=== PATIENT | female | born 1980 | race Caucasian/White ===

== ENCOUNTER → 2018-08-19 | Outpatient (CLI) | payer BC ==
--- NOTE | 2018-08-19 16:53 | XR ---
EXAMINATION TYPE: XR chest 2V DATE OF EXAM: 08/19/2018 COMPARISON: None HISTORY: 38-year-old female with chest pain TECHNIQUE: PA and lateral views FINDINGS: Heart normal size. Mild periportal cuffing. Strandy atelectasis in the lower lungs. No consolidation or pleural effusion. IMPRESSION: Mild peribronchial cuffing could reflect bronchitis or asthma. Otherwise, no acute cardiopulmonary pr ocess.
== END | disposition home or self-care (01) ==
LOC: RADXRMAIN 14:28
PROVIDERS: ATTEND Family Medicine
DX: J98.09 Other diseases of bronchus, not elsewhere classified (principal); R07.9 Chest pain, unspecified
CPT/HCPCS: 71046

== ENCOUNTER → 2018-08-19 | Outpatient (CLI) | payer BC ==
[2018-08-19 15:16] LABS: Basophils % (A) 0 %; Eosinophils # (A) 0.1 k/uL (0-0.7); Eosinophils % (A) 1 %; HCT 44.1 % (34.0-46.0); HGB 14.2 gm/dL (11.4-16.0); Lymphocytes # (A) 1.6 k/uL (1.0-4.8); Lymphocytes % (A) 11 %; MCH 27.9 pg (25.0-35.0); MCHC 32.1 g/dL (31.0-37.0); Mean Platelet Volume 7.7; Monocytes # (A) 0.5 k/uL (0-1.0); Monocytes % (A) 3 %; Neutrophils # (A) 11.4 k/uL (1.3-7.7); Neutrophils % (A) 83 %; Platelet Count 400 k/uL (150-450); RBC 5.07 m/uL (3.80-5.40); RDW 14.2 % (11.5-15.5); WBC 13.7 k/uL (3.8-10.6)
[2018-08-19 19:23] LABS: Albumin 4.5 g/dL (3.80-4.90); Albumin/Globulin Ratio 2.05 (1.60-3.17); Anion Gap 9.1 mmol/L (4.00-12.00); Calcium 9.4 mg/dL (8.7-10.3); Carbon Dioxide 26.9 mmol/L (21.6-31.8); Globulin 2.2 g/dL (1.6-3.3); Potassium 4.5 mmol/L (3.5-5.5); Total Bilirubin 0.2 mg/dL (0.2-1.2); Total Protein 6.7 g/dL (6.2-8.2)
== END | disposition home or self-care (01) ==
LOC: LABWHC1 14:43
PROVIDERS: ATTEND Family Medicine
DX: E55.9 Vitamin D deficiency, unspecified (principal); E07.9 Disorder of thyroid, unspecified
CPT/HCPCS: 36415; 80053; 82306; 84443; 85025

== ENCOUNTER → 2018-08-21 | Outpatient (CLI) | payer BC ==
--- NOTE | 2018-08-23 11:56 | MM ---
Reason for exam: screening (asymptomatic). Last mammogram was performed 2 years and 9 months ago. History: Patient had first child at age 33. Family history of breast cancer in maternal grandmother at age 70, breast cancer in maternal aunt at age 60, and breast cancer in maternal cousin at age 30. Physical Findings: A clinical breast exam by your physician is recommended on an annual basis and results should be correlated with mammographic findings. MG 3D Screening Mammo W/Cad Bilateral CC and MLO view(s) were taken. Prior study comparison: November 30, 2015, bilateral MG screening mammo w CAD. March 12, 2014, bilateral MG screening mammo w CAD. There are scattered fibroglandular densities. Finding: There is developing equal indistinct architectural distortion in the upper outer quadrant of the right breast. New finding since November 30, 2015 and March 12, 2014. ASSESSMENT: Incomplete: need additional imaging evaluation, BI-RAD 0 RECOMMENDATION: Special view mammogram of the right breast. If lesion persists on supplemental views, image directed ultrasound is recommended. [facility] will attempt to contact patient to return for supplemental views and ultrasound if indicated.
== END | disposition home or self-care (01) ==
LOC: RADMAMWWP 15:42
PROVIDERS: ATTEND Obstetrics & Gynecology
DX: Z12.31 Encounter for screening mammogram for malignant neoplasm of breast (principal); Z80.3 Family history of malignant neoplasm of breast; R92.2 Inconclusive mammogram
CPT/HCPCS: 77063; 77067

== ENCOUNTER → 2018-08-28 | Outpatient (CLI) | payer BC ==
--- NOTE | 2018-08-29 07:27 | MM ---
Reason for exam: additional evaluation requested from abnormal screening. Last mammogram was performed less than 1 month ago. History: Patient had first child at age 33. Family history of breast cancer in maternal grandmother at age 70, breast cancer in maternal aunt at age 60, and breast cancer in maternal cousin at age 30. Taking progesterone for 1 year. Physical Findings: Nurse did not find any significant physical abnormalities on exam. MG 3D Work Up W/Cad RT Spot compression CC, spot compression MLO, and LM view(s) were taken of the right breast. Prior study comparison: August 21, 2018, bilateral MG 3d screening mammo w/cad. November 30, 2015, bilateral MG screening mammo w CAD. There are scattered fibroglandular densities. The upper inner quadrant focal asymmetry disperses on additional views. These results were verbally communicated with the patient and result sheet given to the patient on 08/28/18. ASSESSMENT: Negative, BI-RAD 1 RECOMMENDATION: Return to routine screening mammogram schedule for both breasts.
== END | disposition home or self-care (01) ==
LOC: RADMAMWWP 14:53
PROVIDERS: ATTEND Obstetrics & Gynecology
DX: R92.8 Other abnormal and inconclusive findings on diagnostic imaging of breast (principal)
CPT/HCPCS: 77061; 77065

== ENCOUNTER → 2019-04-08 | Outpatient (CLI) | payer BC ==
[2019-04-08 09:47] LABS: Basophils # (A) 0.2 k/uL (0-0.2); Basophils % (A) 2 %; Eosinophils # (A) 0.1 k/uL (0-0.7); Eosinophils % (A) 1 %; HCT 45.6 % (34.0-46.0); HGB 14.4 gm/dL (11.4-16.0); Lymphocytes % (A) 20 %; MCH 28.2 pg (25.0-35.0); MCHC 31.5 g/dL (31.0-37.0); MCV 89.4 fL (80.0-100.0); Mean Platelet Volume 8.4; Monocytes # (A) 0.6 k/uL (0-1.0); Monocytes % (A) 5 %; Neutrophils # (A) 7.3 k/uL (1.3-7.7); Neutrophils % (A) 70 %; Platelet Count 345 k/uL (150-450); RBC 5.11 m/uL (3.80-5.40); RDW 13.3 % (11.5-15.5); WBC 10.3 k/uL (3.8-10.6)
== END | disposition home or self-care (01) ==
LOC: LABPAT 08:43
PROVIDERS: ATTEND Obstetrics & Gynecology
DX: Z01.812 Encounter for preprocedural laboratory examination (principal); N92.0 Excessive and frequent menstruation with regular cycle
CPT/HCPCS: 36415; 85025

== ENCOUNTER 2019-04-14 06:43 | Day surgery (SDC) | payer BC ==
[2019-04-08 09:47] LABS: Basophils # (A) 0.2 k/uL (0-0.2); Basophils % (A) 2 %; Eosinophils # (A) 0.1 k/uL (0-0.7); Eosinophils % (A) 1 %; HCT 45.6 % (34.0-46.0); HGB 14.4 gm/dL (11.4-16.0); Lymphocytes % (A) 20 %; MCH 28.2 pg (25.0-35.0); MCHC 31.5 g/dL (31.0-37.0); MCV 89.4 fL (80.0-100.0); Mean Platelet Volume 8.4; Monocytes # (A) 0.6 k/uL (0-1.0); Monocytes % (A) 5 %; Neutrophils # (A) 7.3 k/uL (1.3-7.7); Neutrophils % (A) 70 %; Platelet Count 345 k/uL (150-450); RBC 5.11 m/uL (3.80-5.40); RDW 13.3 % (11.5-15.5); WBC 10.3 k/uL (3.8-10.6)
[2019-04-09 16:00] VITALS: BMI 41.3
--- NOTE | 2019-04-10 09:36 | HP ---
HISTORY AND PHYSICAL H and P for surgery on Sunday, April 14, 2019. This is a 39-year-old white female, 1, para 1-0-0-1, who presents with a history of heavy clotty menstrual cycles. She was seen in the office where an endometrial biopsy was performed on 02/26/2019. Tissue results were consistent with weakly proliferative endometrium with progestin effect change and breakdown. In addition, she reports a chronic skin condition of the perineal body, which has never been biopsied. The patient states she has had abnormal uterine bleeding for approximately 6 months. She was treated with cyclic Prometrium 200 mg for 14 days monthly for a period of 6 months. FSH recently checked was 6.8. History is also significant for obesity. After consultation, patient is electing to proceed with NovaSure endometrial ablation, and is requesting biopsy of the perineal skin as well. Recent hemoglobin 13.9. PAST MEDICAL HISTORY: Significant for irritable bowel syndrome. PAST SURGICAL HISTORY: section in 2013, cholecystectomy 2014, colonoscopy 2017, endometrial biopsy several times in the past. CURRENT MEDICATIONS: 1. Motrin 800 mg as needed. 2. Vitamin D orally. 3. Xanax 0.5 mg as needed. ALLERGIES: Allergies include VICODIN to which she reports itching. FAMILY HISTORY: Significant for emphysema, diabetes, lung cancer, breast cancer, endometriosis, shingles, lymph node cancer. OBSTETRIC HISTORY: section 2013. 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 She admits to 1 to 4 alcoholic beverages weekly. She is a former tobacco smoker. PHYSICAL EXAMINATION: On exam, patient is 5 feet 7 inches, 265 pounds, blood pressure 122/74. HEENT examination is negative, no thyromegaly, no cervical lymphadenopathy. Good dentition. Chest is clear to auscultation in all butler anteriorly and posteriorly. Breasts are bilaterally symmetric to inspection with no skin dimpling, nipple discharge, axillary adenopathy, or discernible lesions or masses. Abdomen is obese, nontender, no organosplenomegaly, active bowel sounds. Extremities reveal no edema. There are good peripheral pulses. On pelvic exam, cervix is small, mobile, nulliparous. Uterus is small, anteverted, anteflexed, smooth, mobile, nontender. Adnexa are negative bilaterally. Rectal exam reveals good tone, FIT negative stool. The perineal skin does have a unusual appearance in that it is irregular, thin, and somewhat chaffed across the perineal body between the posterior vaginal vault and rectal area. IMPRESSION: Metrorrhagia, chronic skin disorder of the perineal body. The patient wishing endometrial ablation and biopsy of the perineal skin. PLAN: We will proceed as above. The risks, benefits, alternatives have all been discussed in detail. The ACOG pamphlet on this procedure have been given to the patient and reviewed thoroughly. She understands the risks of bleeding, infection, perforation or damage to the bowel, bladder, ureters, cervix, or indeed any pelvic organs. She understands the risks of anesthesia to include aspiration, nerve damage, or even . Second opinion is offered and declined. I believe patient has a thorough complete understanding of our plan with no further questions or concerns. MMODL / IJN: [id number] /
[~2019-04-14 06:43] MED LIST: DEXAMETHASONE SOD PHOSPHATE 10 MG/ML 1 ML VIAL IV ONE; LACTATED RINGERS 1,000 ML IV SCH; LIDOCAINE 1% 20 ML VIAL (10MG/ML) FOR IV START INTRADERMA PRN; ONDANSETRON 4 MG/2 ML VIAL IVP ONE; Pre Op ABX Message 1 EACH MISC MISCELLANE ONE; fentaNYL (PF) 50 MCG/ML 2 ML AMP IV PRN
[2019-04-14 07:13] VITALS: TEMP 97.8
[2019-04-14] MEDS ORDERED: SCOPOLAMINE 1.5MG/72HR PATCH TRANSDERM ONE (07:14)
[2019-04-14] MEDS ORDERED: LACTATED RINGERS 1,000 ML IV ONE (07:14)
[2019-04-14] MEDS ORDERED: KETOROLAC 30 MG/ML 1 ML VIAL ONE (08:01)
[2019-04-14] MEDS ORDERED: SUCCINYLCHOLINE CHLORIDE 100 MG/5 ML SYR IV ONE (08:01)
[2019-04-14] MEDS ORDERED: fentaNYL (PF) 50 MCG/ML 2 ML AMP ONE (08:01)
[2019-04-14] MEDS ORDERED: MIDAZOLAM 2 MG/2 ML VIAL ONE (08:01)
[2019-04-14] MEDS ORDERED: LIDOCAINE 1% INJ 10MG/ML (20 ML MDV) ONE (08:01)
[2019-04-14] MEDS ORDERED: diphenhydrAMINE 50 MG/ML 1 ML VIAL ONE (08:01)
[2019-04-14] MEDS ORDERED: PROPOFOL 10 MG/ML 20 ML VIAL IV ONE (08:01)
--- NOTE | 2019-04-14 08:41 | P.OP ---
Date of Procedure: 04/14/19 Preoperative Diagnosis: menorrhagia, perineal skin disorder Postoperative Diagnosis: same, pathology pending Procedure(s) Performed: hysteroscopy, NovaSure endometrial ablation, biopsy right vulva Anesthesia: GLENN Surgeon: Maryellen Garcia Estimated Blood Loss (ml): 10 IV fluids (ml): 400 Urine output (ml): 25 Pathology: other (right vulvar biopsy) Condition: stable Disposition: PACU Operative Findings: essentially negative-appearing uterine cavity. Discoloration of the perineal body and lower thighs. Description of Procedure: patient is brought to the operating suite where a general anesthetic is adm inistered without difficulty. She's placed in the dorsal lithotomy position. The perineal body is prepped and draped in usual sterile fashion, along with the cervix and vagina. The appropriate timeout is performed to assure proper patient and procedural identification. Urine hCG is negative. Examination under anesthesia reveals a skin disorder with discoloration of the perineal body and bilateral lower thigh regions. Uterus is anteverted anteflex, small and mobile, adnexa negative bilaterally. Weighted speculum was placed into the vagina and the bladder is drained for approximately 25 mL of clear yellow urine. Anterior lip of the cervix is grasped with a double-tooth tenaculum. Cervix is gently and systematically dilated using Hanks dilators. Uterus sounds to a depth of 9 cm in the anteverted position. Hysteroscope was placed and fluid is infused. The cavity is distended and inspected, no obvious polyps, fibroids, septa or defects are noted. Hysteroscope was removed. The NovaSure wand is then placed and seated properly. Uterine length of 6.0 cm, width of 3.8 cm is chosen. The machine is properly calibrated and enabled. For 68 seconds with a power of 125 W the procedure is carried out. When it is completed the wand is reduced and removed. Hysteroscope was once again placed and the cavity is noted to be uniformly blanched. An area is chosen on the right vulvar, and a right vulvar biopsy is obtained using a sharp scalpel. The tissue is sent to pathology for evaluation. The skin is touched with nitrous sticks for excellant hemostasis. patient is brought to recovery room in very good condition with stable vital signs including a blood pressure of 132/96, pulse 108, 96% O2 saturation. Toradol is given prior to leaving the operative room. Patient will follow-up with me in the office in 2 weeks.
[2019-04-14] MEDS ORDERED: SILVER NITRATE APPLICATOR 1 EACH STICK..EA. TOPICAL ONE (08:42)
[2019-04-14 08:51] VITALS: RESP 16
[2019-04-14] MEDS: HYDROmorphone 0.5 MG/0.5 ML SYRINGE IVP PRN ×2 (08:55→09:17)
[2019-04-14] MEDS ORDERED: ONDANSETRON 4 MG/2 ML VIAL IVP ONE (09:17)
[2019-04-14 10:05] VITALS: BP 123/70; PULSE 73
== END 2019-04-14 10:18 | disposition home or self-care (01) ==
LOC: OR 06:43
PROVIDERS: ATTEND Obstetrics & Gynecology
DX: N92.1 Excessive and frequent menstruation with irregular cycle (principal); I49.9 Cardiac arrhythmia, unspecified; J45.909 Unspecified asthma, uncomplicated; A63.0 Anogenital (venereal) warts; L98.9 Disorder of the skin and subcutaneous tissue, unspecified; E66.9 Obesity, unspecified; Z98.891 History of uterine scar from previous surgery; Z90.49 Acquired absence of other specified parts of digestive tract; Z98.890 Other specified postprocedural states; Z79.899 Other long term (current) drug therapy; Z88.5 Allergy status to narcotic agent; Z80.3 Family history of malignant neoplasm of breast; Z80.1 Family history of malignant neoplasm of trachea, bronchus and lung; Z80.7 Family history of other malignant neoplasms of lymphoid, hematopoietic and related tissues; Z83.3 Family history of diabetes mellitus; Z87.891 Personal history of nicotine dependence; Z88.1 Allergy status to other antibiotic agents; Z87.19 Personal history of other diseases of the digestive system; Z68.41 Body mass index [BMI] 40.0-44.9, adult
CPT/HCPCS: 81025; 88305; 85025; 36415; 58563; 56605; J2250; J1200; J1100; J2405; J2001; J3010; J1885; J0330; J2704; J1170

== ENCOUNTER 2020-06-14 18:49 | Emergency (ER) | payer BC ==
[2020-06-14 19:03] VITALS: BP 119/63; PULSE 91; RESP 18; TEMP 98.7
[2020-06-14] MEDS ORDERED: KETOROLAC 15 MG/ML 1 ML VIAL IM STA (19:24)
[2020-06-14] MEDS ORDERED: ACET/COD 300 MG/30 MG STARTER PACK 6 TAB BTL PO STA (19:24)
--- NOTE | 2020-06-14 20:10 | XR ---
RESULT: HISTORY: Pain after slip and fall injury TECHNIQUE: 3 views of the right ankle were obtained. COMPARISON: None. FINDINGS: There is no acute fracture or dislocation. The visualized joint spaces are preserved. There is soft t issue edema overlying the lateral malleolus. The ankle mortise is congruent. IMPRESSION: No acute osseous abnormality.
--- NOTE | 2020-06-14 20:24 | ED ---
Lower Extremity Injury HPI - General Chief Complaint: Extremity Injury, Lower Stated Complaint: Fall Rt ankle Time Seen by Provider: 06/14/20 19:15 Source: patient Mode of arrival: wheelchair Limitations: physical limitation - History of Present Illness Initial Comments: 40-year-old female patient presents to the emergency department today for evaluation of right ankle injury. Patient states that she slipped and fell on the ice injuring the ankle. States the pain and swelling started almost immediately. She denies any knee pain. Denies hitting her head or losing consciousness with the fall. Denies any other injuries. Denies taking any medication for her symptoms. Patient denies any headache, neck pain, back pain, chest pain, shortness of breath, dizziness, weakness, abdominal pain, nausea, vomiting, or difficulties with bowel movements or urination. - Related Data Home Medications Medication Instructions Recorded Confirmed Diphenox-Atrop 2.5-0.025 mg 1 tab PO QID PRN 12/09/14 04/09/19 [Lomotil] Antibiotic 1 tab PO DIRECTED 04/09/19 04/09/19 Ergocalciferol [Vitamin D2] 50,000 unit PO TH 04/09/19 04/09/19 Inhaler (Unknown Name) 1 puff INHALATION DIRECTED PRN 04/09/19 04/09/19 Multivitamins, Thera [Multivitamin 1 tab PO DAILY 04/09/19 04/09/19 (formulary)] Vit C/Ascorb Sod/Multivit-Min 500 mg PO DAILY 04/09/19 04/09/19 [Emergen-C 500 mg Chewable Tab] Xanax (Unknown Dose) 1 tab PO HS 04/09/19 04/09/19 Previous Rx's Medication Instructions Recorded Ibuprofen [Motrin] 600 mg PO Q8HR PRN #30 tab 06/14/20 Allergies Allergy/AdvReac Type Severity Reaction Status Date / Time acetaminophen [From Vicodin] Allergy Itching Verified 06/14/20 19:02 amoxicillin [From Augmentin] Allergy Nausea & Verified 06/14/20 19:02 Vomiting & Diarrhea clavulanic acid Allergy Nausea & Verified 06/14/20 19:02 [From Augmentin] Vomiting & Diarrhea hydrocodone bitartrate Allergy Itching Verified 06/14/20 19:02 [From Vicodin] Review of Systems ROS Statement: Those systems with pertinent positive or pertinent negative responses have been documented in the HPI. ROS Other: All systems not noted in ROS Statement are negative. Past Medical History Past Medical History: Skin Disorder Additional Past Medical History / Comment(s): IBS, arrythmia, loss of pigmentation in skin, gallstones, kidney stones, contact dermatitis left lower leg, states had infection in rt great toe nail 11/2013- never cultured but tx with antibiotics History of Any Multi-Drug Resistant Organisms: None Reported Past Surgical History: Section Additional Past Surgical History / Comment(s): COLP-WNL> 10yrs ago Past Anesthesia/Blood Transfusion Reactions: Motion Sickness, Postoperative Nausea & Vomiting (PONV) Past Psychological History: No Psychological Hx Reported, Depression Smoking Status: Never smoker Past Alcohol Use History: Occasional Past Drug Use History: None Reported - Past Family History Mother Family Medical History: Cancer General Exam Limitations: physical limitation General appearance: alert, in no apparent distress, other (This is a well- developed, well-nourished adult female patient in no acute distress. Vital signs upon presentation are temperature 98.7F, pulse 91, respirations 18, blood pressure 119/63, pulse ox 99% on room air.) Neck exam: Present: normal inspection, full ROM, other (Nontender, no step-off, no deformity to firm midline palpation of the posterior cervical spine. Full range of motion without pain or limitation.). Absent: tenderness, meningismus, lymphadenopathy Respiratory exam: Present: normal lung sounds bilaterally. Absent: respiratory distress, wheezes, rales, rhonchi, stridor Cardiovascular Exam: Present: regular rate, normal rhythm, normal heart sounds. Absent: systolic murmur, diastolic murmur, rubs, gallop, clicks Extremities exam: Present: full ROM, tenderness (Over the right lateral malleolus. No tenderness over the proximal tib-fib), normal capillary refill, other (There is soft tissue swelling noted over the medial and lateral malleolus on the right ankle. No fifth metatarsal tenderness. Skin to the foot is pink, warm, dry. Cap refills less than 3 seconds. Pedal pulses 2+.). Absent: normal inspection, pedal edema, joint swelling, calf tenderness Back exam: Present: normal inspection, other (Nontender, no step-off, no deformity to firm midline palpation of the thoracic and lumbar vertebrae. Full range of motion without pain or limitation.). Absent: vertebral tenderness Neurological exam: Present: alert, oriented X3, CN II-XII intact Psychiatric exam: Present: normal affect, normal mood Skin exam: Present: warm, dry, intact, normal color. Absent: rash Course Vital Signs 06/14/20 18:59 Temperature 98.7 F Pulse Rate 91 Respiratory 18 Rate Blood Pressure 119/63 O2 Sat by Pulse 99 Oximetry Medical Decision Making - Medical Decision Making 40-year-old female patient presents to the emergency department today for evaluation of right ankle injury. Physical examination did reveal soft tissue swelling over the medial lateral aspect of the right ankle. Neurovascular status is intact. X-ray was obtained and was negative. She was put in Graham wrap and ankle stirrup splint. She is educated regarding rest, ice, elevation. She is instructed to have repeat x-rays performed in 7-10 days of her pain symptoms persist. She is given prescription for ibuprofen. She is instructed to follow- up with her primary care physician for recheck in 1-2 days. Return parameters were discussed in detail. She verbalizes understanding and agrees with this plan. Case discussed with my attending Dr. Valencia. - Radiology Data Radiology results: report reviewed, image reviewed 3 views of the right ankle are obtained. Report is reviewed in its entirety. Impression by Dr. Mcdaniels shows no acute osseous abnormality. Disposition Clinical Impression: Right ankle sprain Disposition: HOME SELF-CARE Condition: Good Instructions (If sedation given, give patient instructions): Ankle Sprain (ED) Additional Instructions: Rest, ice, elevate the right ankle. Use Graham wrap and brace for compression and support. Follow-up with your primary care physician for recheck in 1-2 days. Have repeat x-rays performed in 7-10 days if pain symptoms persist. Return to the emergency department for any new, worsening, or concerning symptoms. Prescriptions: Ibuprofen [Motrin] 600 mg PO Q8HR PRN #30 tab PRN Reason: Pain Is patient prescribed a controlled substance at d/c from ED?: No Referrals: Jadon Valdivia MD [Primary Care Provider] - 1-2 days Time of Disposition: 20:24
== END 2020-06-14 20:31 | disposition home or self-care (01) ==
LOC: EC 18:49
DX: S93.401A Sprain of unspecified ligament of right ankle, initial encounter (principal); Z88.6 Allergy status to analgesic agent; Z88.1 Allergy status to other antibiotic agents; Z88.5 Allergy status to narcotic agent; Z88.0 Allergy status to penicillin; F32.9 Major depressive disorder, single episode, unspecified; W00.0XXA Fall on same level due to ice and snow, initial encounter; Y92.89 Other specified places as the place of occurrence of the external cause
CPT/HCPCS: 73610; 96372; 99283; 29515; L4350; J1885

== ENCOUNTER → 2021-10-11 | Outpatient (CLI) | payer BC ==
--- NOTE | 2021-10-11 13:41 | CT ---
EXAMINATION TYPE: CT abdomen pelvis w con DATE OF EXAM: 10/11/2021 COMPARISON: CT dated 05/25/2015 HISTORY: ovarian cyst bilateral. LUQ pain. Slow urination. CT DLP: 2249.20 mGycm Automated exposure control for dose reduction was used. TECHNIQUE: Helical acquisition of images was performed from the lung bases through the pelvis. CONTRAST: Performed with Oral Contrast and with IV Contrast, patient injected with 100 mL of Isovue 300. FINDINGS: LUNG BASES: No significant abnormality is appreciated. LIVER/GB: Suspected hepatic steatosis. No definite hepatic focal lesion. Previous cholecystectomy. PANCREAS: No significant abnormality is seen. SPLEEN: No significant abnormality is seen. ADRENALS: No significant abnormality is seen. KIDNEYS: No significant abnormality is seen. FREE AIR: No free air is visualized. RETROPERITONEAL ADENOPATHY: None visualized REPRODUCTIVE ORGANS: No gross uterine mass. Suspected bilateral ovarian cysts/follicles which could b e normal for the patient's age, suboptimally assessed by this CT scan. URINARY BLADDER: No significant abnormality is seen. PELVIC ADENOPATHY: No pathologically enlarged enlarged lymph nodes. OSSEOUS STRUCTURES: Degenerative changes of the sacroiliac joints. BOWEL: Unremarkable nondistended stomach and duodenum. Mild wall thickening of the terminal ileum, o therwise unremarkable small bowel. Grossly unremarkable colon. Normal appendix. OTHER: Unremarkable abdominal aorta and IVC. No sizable ascites. Small fat containing umbilical herni a. IMPRESSION: Suspect bilateral ovarian/adnexal follicles/cysts which could be normal for the patient's age yet sub optimally assessed by this CT scan. Further pelvic ultrasound assessment can be considered if clinica lly required. No definite suspicious lesion or acute abnormality seen in the abdomen or the pelvis. Incidental find ings as described above.
== END | disposition home or self-care (01) ==
LOC: RADCTMAIN 10:52
PROVIDERS: ATTEND Obstetrics & Gynecology
DX: K42.9 Umbilical hernia without obstruction or gangrene (principal); K63.89 Other specified diseases of intestine
CPT/HCPCS: 74177; Q9967

== ENCOUNTER → 2022-10-20 | Outpatient (CLI) | payer BC ==
[2022-10-20 16:39] LABS: Blood Urea Nitrogen 12.6 mg/dL (9.0-27.0); Carbon Dioxide 28.5 mmol/L (21.6-31.8); Chloride 104 mmol/L (96-109); Glucose 94 mg/dL (70-110); Potassium 4.5 mmol/L (3.5-5.5); Sodium 142 mmol/L (135-145)
[2022-10-20 17:37] LABS: Basophils # (A) 0.04 X 10*3/uL (0.00-0.10); Basophils % (A) 0.3 %; Eosinophils % (A) 0.8 %; HCT 43.8 % (37.2-46.3); HGB 14.2 d/dL (12.0-15.0); Lymphocytes # (A) 2.47 X 10*3/uL (0.90-5.00); Lymphocytes % (A) 18.6 %; MCH 29.8 pg (27.0-32.0); MCHC 32.4 d/dL (32.0-37.0); Monocytes # (A) 1.17 X 10*3/uL (0.20-1.00); Monocytes % (A) 8.8 %; NRBC Per 100 WBC 0 X 10*3/uL (0.00-0.01); Neutrophils # (A) 9.38 X 10*3/uL (1.80-7.70); Neutrophils % (A) 70.8 %; Platelet Count 377 X 10*3/uL (140-440); RBC 4.76 X 10*6/uL (4.10-5.20); RDW 14.5 % (11.5-14.5); WBC 13.25 X 10*3/uL (4.50-10.00)
== END | disposition home or self-care (01) ==
LOC: LABPAT 10:32
PROVIDERS: ATTEND Obstetrics & Gynecology Obstetrics
DX: Z01.818 Encounter for other preprocedural examination (principal); E11.9 Type 2 diabetes mellitus without complications; N93.8 Other specified abnormal uterine and vaginal bleeding; R10.2 Pelvic and perineal pain
CPT/HCPCS: 80051; 82565; 82947; 84520; 85025; 87086; 93005

== ENCOUNTER 2022-10-30 07:03 | Day surgery (SDC) | payer BC ==
[2022-10-30] MEDS ORDERED: DEXAMETHASONE SOD PHOSPHATE 4 MG/ML 1 ML VIAL IV ONE (07:15)
[2022-10-30] MEDS ORDERED: SCOPOLAMINE 1 MG/72 HR PATCH TRANSDERM ONE (07:15)
[2022-10-30] MEDS ORDERED: LACTATED RINGERS 1,000 ML IV SCH (07:15)
[2022-10-30] MEDS ORDERED: ONDANSETRON 4 MG/2 ML VIAL IVP ONE (07:15)
[2022-10-30] MEDS ORDERED: MIDAZOLAM 2 MG/2 ML VIAL IV PRN (07:15)
[2022-10-30] MEDS ORDERED: LIDOCAINE 1% (10MG/ML) FOR IV START INTRADERMA ONE (08:00)
[2022-10-30 08:15] LABS: Glucose,Whole Blood 94 mg/dL (70-110)
[2022-10-30] MEDS ORDERED: PROPOFOL 10 MG/ML 20 ML VIAL IV ONE (08:56)
[2022-10-30] MEDS ORDERED: SUCCINYLCHOLINE CHLORIDE 200 MG/10 ML VIAL IV ONE (08:56)
[2022-10-30] MEDS ORDERED: ROCURONIUM 10 MG/ML (5 ML VIAL) IV ONE (08:56)
[2022-10-30] MEDS ORDERED: NEOSTIGMINE 1 MG/ML 10 ML VIAL ONE (08:56)
[2022-10-30] MEDS ORDERED: LIDOCAINE 2% INJ 20 MG/ML (2 ML VIAL) ONE (08:56)
[2022-10-30] MEDS ORDERED: MIDAZOLAM 2 MG/2 ML VIAL ONE (08:56)
[2022-10-30] MEDS ORDERED: GLYCOPYRROLATE 0.2 MG/ML 2 ML VIAL ONE (08:56)
[2022-10-30] MEDS ORDERED: fentaNYL (PF) 50 MCG/ML 2 ML AMP ONE (08:56)
[2022-10-30] MEDS ORDERED: BUPIVACAINE (PF) 0.25% 30 ML VIAL SQ ONE ×2 (09:59→10:46)
[2022-10-30] MEDS ORDERED: LACTATED RINGERS 1,000 ML IV ONE (10:45)
[2022-10-30] MEDS ORDERED: Acetaminophen-Codeine 300-30mg TAB PO PRN (10:54)
[2022-10-30] MEDS ORDERED: SIMETHICONE 80 MG CHEWABLE PO PRN (10:54)
[2022-10-30] MEDS ORDERED: ONDANSETRON 4 MG/2 ML VIAL IVP PRN (10:54)
--- NOTE | 2022-10-30 11:00 | P.HPOB ---
History of Present Illness H&P Date: 10/30/22 Chief Complaint: Heavy menstrual bleeding, ovarian cyst This is a 42-year-old 1 para 1 that presented with complaints of abnormal uterine bleeding. Patient states she had an endometrial ablation 2018 and continue to have irregular bleeding. Patient in addition failed cyclic progesterone. Patient ultrasound done revealing a normal uterine size and normal ovaries bilaterally. She does have a history of an abnormal ovarian cyst and a consult with Dr. Le which she felt it was a benign cyst and she was sent back for continued care. Patient is very desirous of bilateral salpingo-ophorectomy given this prior finding. She isn't counseled on surgical menopause and possible options for treatment. She is willing to discuss further postoperatively. Review of Systems Constitutional: Denies chills, Denies fatigue, Denies fever Ears, nose, mouth and throat: Denies headache Cardiovascular: Reports leg edema Respiratory: Denies dyspnea Gastrointestinal: Denies constipation, Denies diarrhea, Denies nausea, Denies vomiting Genitourinary: Denies Menstruation: Reports as per HPI, Reports period heavy Past Medical History Past Medical History: Asthma, Diabetes Mellitus, Skin Disorder Additional Past Medical History / Comment(s): IBS, arrythmia, loss of pigmentation in skin, gallstones, kidney stones, History of Any Multi-Drug Resistant Organisms: None Reported Past Surgical History: Section, Cholecystectomy, Uterine Ablation Additional Past Surgical History / Comment(s): COLP-WNL> 10yrs ago Past Anesthesia/Blood Transfusion Reactions: Motion Sickness Additional Past Anesthesia/Blood Transfusion Reaction / Comment(s): no blood tx hx Smoking Status: Former smoker - Past Family History Mother Family Medical History: Cancer Medications and Allergies Home Medications Medication Instructions Recorded Confirmed Type Inhaler (Unknown Name) 1 puff INHALATION DIRECTED PRN 04/09/19 10/20/22 History Multivitamins, Thera [Multivitamin 1 tab PO DAILY 04/09/19 10/20/22 History (formulary)] Xanax (Unknown Dose) 1 tab PO HS 04/09/19 10/20/22 History Ibuprofen [Motrin] 600 mg PO Q8HR PRN #30 tab 06/14/20 10/20/22 Rx Escitalopram [Lexapro] 10 mg PO DAILY 10/20/22 10/20/22 History Semaglutide [Ozempic] 2 mg SQ HOBSON 10/20/22 10/30/22 History Amoxicillin 1 tab TID 10/30/22 10/30/22 History Allergies Allergy/AdvReac Type Severity Reaction Status Date / Time amoxicillin [From Augmentin] Allergy Nausea & Verified 10/20/22 08:30 Vomiting & Diarrhea clavulanic acid Allergy Nausea & Verified 10/20/22 08:30 [From Augmentin] Vomiting & Diarrhea hydrocodone bitartrate Allergy Itching Verified 10/20/22 08:30 [From Vicodin] Exam Osteopathic Statement: *. No significant issues noted on an osteopathic structural exam other than those noted in the History and Physical/Consult. Vital Signs Temp Pulse Resp BP Pulse Ox 10/30/22 07:36 97.6 F 81 18 118/73 93 L Intake and Output 10/29/22 10/30/22 10/30/22 22:59 06:59 14:59 Intake Total 200 Balance 200 Intake: IV 200 Other: Weight 113.7 kg Targeted physical exam is performed in this date in general well-nourished well- developed non female in no acute distress, breathing is noted to be nonlabored, heart has a regular, abdomen is obese and soft, nontender on genitourinary exam external genitalia is noted to be normal for age the uterus is mobile no adnexal masses are appreciated. The cervix is without lesion. The vaginal mucosa was noted to be pink and well rugated. Assessment and Plan (1) Abnormal uterine bleeding (AUB) Current Visit: Yes Status: Acute Code(s): N93.9 - ABNORMAL UTERINE AND VAGINAL BLEEDING, UNSPECIFIED SNOMED Code(s): 92089487522236 (2) Ovarian cyst Current Visit: Yes Status: Acute Code(s): N83.209 - UNSPECIFIED OVARIAN CYST, UNSPECIFIED SIDE SNOMED Code(s): 13724122 Plan: 42-year-old 1 para 1 presents for robotic cyst vaginal hysterotomy with bilateral salpingo-oophorectomy, diagnostic cystoscopy. Patient has a history of a prior endometrial ablation for which she has noted abnormal uterine bleeding despite procedure. Patient is also failed cyclic progesterone. Patient is desirous of definitive treatment with hysterectomy. Of note patient had a prior ovarian cyst and abnormal [place] test and was of slightly centered to gynecologic oncology for follow-up. Gynecologic oncology evaluated this patient and felt it was a benign cyst. Surgery is reviewed with the patient in detail, questions are answered. Risks are reviewed including but not limited to infection, bleeding, damage to bladder, bowel, ureteric injury. Patient states understanding and wishes to proceed.
--- NOTE | 2022-10-30 11:06 | P.OP ---
Date of Procedure: 10/30/22 Preoperative Diagnosis: KUB, failed endometrial ablation, failed medical management, ovarian cyst Postoperative Diagnosis: Same plus noted anterior abdominal wall adhesions and suspected adenomyosis Procedure(s) Performed: Robotic cyst vaginal hysterectomy, bilateral salpingo-oophorectomy, diagnostic cystoscopy, adhesio lysis Anesthesia: GLENN Surgeon: Kathy Rich Return To Service Inspector #1: Buffy Uriostegui Estimated Blood Loss (ml): 15 IV fluids (ml): 900 Urine output (ml): 100 Pathology: other (Uterus cervix bilateral fallopian tubes and ovaries) Condition: stable Disposition: PACU Indications for Procedure: 42-year-old female status post endometrial ablation with continued abnormal uterine bleeding despite endometrial ablation and cyclic progesterone. Patient desires definitive treatment. Patient has a prior history of an abnormal ovarian cyst for which she desires definitive treatment with hysterectomy in addition. Operative Findings: Globular uterus with suspicion of adenomyosis, anterior omental adhesions are appreciated. Ovaries are follicular in nature, and endometrial implants are appreciated. Description of Procedure: Patient was taken back to the operating suite where general anesthesia was obtained without difficulty by the anesthesia department. She was prepped and draped in normal sterile fashion in the dorsal lithotomy position. A Gandara catheter was then placed under sterile technique. Weighted speculum was placed in the posterior vaginal vault the anterior lip of the cervix was visualized and grasped with a single-tooth tenaculum. The endocervical canal was then serially dilated. The [employer] uterine manipulator was advanced into the uterus and the balloon was insufflated with air. The cervical cap was placed snugly against the cervix and all instrument were removed from the patient's vaginal vault. Attention was then turned the patient's abdomen where 2 finger breaths above the umbilicus a small skin incision is made. Through this incision appears needles placed. Once the Veress needle is deemed to be in the appropriate position with a drop of CO2 pressure CO2 insufflation was allowed to occur. Approximately 3 L of gas or used to obtain pneumoperitoneum. An 8 mm trocar and sleeve with the laparoscope in place placed through the skin incision and toward the pneumoperitoneum. At this time the additional port sites are placed at 10 cm lateral and 3/7 inferior to midline port these are 8 mm ports and placed under direct visualization. In the left upper quadrant a 12 mm skin incision is made and a 12 mm trocar and sleeve is placed under direct visual station. At this time the [employer] robot is docked in the usual fashion. The operative arms are now placed. In the right operative arm the monopolar scissors, the left operative arm the bipolar forceps. Attention was then turned to the midline omental adhesions which was noted to be filmy in nature this was taken down sharply with the monopolar scissors. Hemostasis was appreciated throughout. Attention turned to the patient's left infundibulopelvic ligament which was grasped coagulated distally and proximally and divided. This continued through the broad and toward the round ligament. Hemostasis was noted. The round ligament was grasped quickly distally proximal plane divided. The bladder flap from the left was then created using sharp and blunt dissection. The ascending branch the uterine artery was visualized coagulated transected. Hemostasis was appreciated. Attention was then turned the patient's right infant at low pelvic ligament which was coagulated distally and proximal plane divided. Hemostasis was noted. This continued through the broad toward the round which was coagulated distally and proximal main divided. The bladder flap from the right was then created using sharp and blunt dissection. The ascending branch the uterine artery from the right was was visualized coagulated and transected. At this time the other remaining attachment was a vaginal attachment therefore colpotomy incision was made and circumference of fashion. The uterus cervix bilateral fallopian tubes and bilateral ovaries were then removed through the vaginal opening. The pelvis was then copiously irrigated. The vaginal cuff was noted to be hemostatic and closed with 0 Vicryl in [id number] sutures. Approximate 5 [id number] sutures were used to obtain closure. hemostasis of the vaginal cuff was then appreciated. All instrument removed from the patient's abdomen at this time. Attention was then turned the patient's Gandara catheter which was removed without difficulty and noted to be draining clear yellow urine. Cystoscope was then performed. Cystoscope was placed through the urethra and toward the bladder bladder bubble was then noted a complete survey of the bladder revealed intact mucosa, both ureteral orifices were noted to be spilling clear yellow urine. Cystoscope was removed and the Gandara catheter was replaced under sterile technique. Attention was then turned to the abdomen where the skin incisions were closed with 4-0 Vicryl in a septic fashion. Steri-Strips and sterile dressings were applied. All counts were noted to be correct 2 at the end of the procedure. Patient tolerated procedure well was taken the recovery room awake in stable condition.
[2022-10-30] MEDS: fentaNYL (PF) 50 MCG/ML 2 ML AMP IV PRN ×3 (11:25→12:20)
[2022-10-30] MEDS ORDERED: ACETAMINOPHEN IV (For NPO) 1,000 MG in EMPTY BAG 1 BAG IVPB ONE (11:30)
[2022-10-30 13:05] LABS: Glucose,Whole Blood 113 mg/dL (70-110)
[2022-10-30 14:04] VITALS: RESP 16
[2022-10-30] MEDS: IBUPROFEN 600 MG TAB PO PRN (19:53)
[2022-10-30] MEDS: SENNOSIDES-DOCUSATE SODIUM 1 EACH TAB PO SCH (20:15)
[2022-10-31] MEDS: Acetaminophen-Codeine 300-30mg TAB PO PRN ×2 (00:49→09:34)
[2022-10-31] MEDS: IBUPROFEN 600 MG TAB PO PRN ×2 (05:08→11:37)
[2022-10-31 07:34] LABS: Basophils % (A) 0 %; Eosinophils # (A) 0.1 k/uL (0-0.7); Eosinophils % (A) 0 %; HGB 13.2 gm/dL (11.4-16.0); Lymphocytes # (A) 1.6 k/uL (1.0-4.8); Lymphocytes % (A) 9 %; MCHC 33.1 g/dL (31.0-37.0); MCV 90.7 fL (80.0-100.0); Mean Platelet Volume 8.3; Monocytes # (A) 0.8 k/uL (0-1.0); Monocytes % (A) 5 %; Neutrophils # (A) 14.3 k/uL (1.3-7.7); Neutrophils % (A) 84 %; Platelet Count 311 k/uL (150-450); RDW 13.8 % (11.5-15.5)
--- NOTE | 2022-10-31 08:34 | P.DS ---
Providers Date of admission: 10/30/2022 Expected date of discharge: 10/31/22 Attending physician: Kathy Rich Primary care physician: Jadon Willettt - Discharge Diagnosis(es) (1) Abnormal uterine bleeding (AUB) Current Visit: Yes Status: Acute (2) Ovarian cyst Current Visit: Yes Status: Acute (3) S/P hysterectomy with oophorectomy Current Visit: Yes Status: Acute Hospital Course: 42-year-old female that was admitted yesterday 10/30 for scheduled robotic cyst vaginal hysterectomy with bilateral salpingo-for ectomy, diagnostic cystoscopy. Patient has a history of abnormal uterine bleeding despite endometrial ablation and cyclic progesterone. Patient has a history of abnormal ovarian cyst with abnormal testing. Patient was seen by [facility] on and felt it was benign cyst. Despite this finding she desires definitive treatment with hysterectomy and oophorectomy. Patient is taken back to the operating suite where surgery was completed without difficulty. For full details on the surgery please see the operative report. On this postoperative day #1 she is ambulating without difficulty. She denies flatus. Gandara catheter was removed this morning and was draining clear yellow urine. She states she was able to rest last night without too much discomfort. She is denying concerns this morning. Scant vaginal bleeding noted overnight. She would like discharge home today if possible. Patient Condition at Discharge: Good Plan - Discharge Summary Discharge Rx Participant: No New Discharge Prescriptions: No Action Xanax (Unknown Dose) 1 tab PO HS Multivitamins, Thera [Multivitamin (formulary)] 1 tab PO DAILY Inhaler (Unknown Name) 1 puff INHALATION DIRECTED PRN PRN Reason: "Swollen Airway" Ibuprofen [Motrin] 600 mg PO Q8HR PRN #30 tab PRN Reason: Pain Escitalopram [Lexapro] 10 mg PO DAILY Semaglutide [Ozempic] 2 mg SQ HOBSON Amoxicillin 1 tab TID Discharge Medication List Inhaler (Unknown Name) 1 puff INHALATION DIRECTED PRN 04/09/19 [History] Multivitamins, Thera [Multivitamin (formulary)] 1 tab PO DAILY 04/09/19 [History] Xanax (Unknown Dose) 1 tab PO HS 04/09/19 [History] Ibuprofen [Motrin] 600 mg PO Q8HR PRN #30 tab 06/14/20 [Rx] Escitalopram [Lexapro] 10 mg PO DAILY 10/20/22 [History] Semaglutide [Ozempic] 2 mg SQ HOBSON 10/20/22 [History] Amoxicillin 1 tab TID 10/30/22 [History] Follow up Appointment(s)/Referral(s): Kathy Rich DO [Doctor of Osteopathic Medicine] - 2 Weeks Patient Instructions/Handouts: *Surgery [facility] - Scopalamine Patch Instructions Activity/Diet/Wound Care/Special Instructions: Postoperative instructions are reviewed with patient. [id number] ibuprofen 600 mg as needed for pain, Tylenol is encouraged as well. Bleeding precautions are reviewed, scant to moderate vaginal bleeding can be noted postoperatively. Patient is to call the office for routine postoperative check in 2 weeks. No tub baths or intercourse until postoperative appointment most likely 8 weeks. Discharge Disposition: HOME SELF-CARE
[2022-10-31] MEDS ORDERED: ESCITALOPRAM 10 MG TAB PO SCH (09:00)
[2022-10-31 09:44] VITALS: BP 111/63; PULSE 86; TEMP 97.8
[2022-10-31] MEDS ORDERED: ACETAMINOPHEN TAB 325 MG TAB PO PRN (10:55)
[2022-10-31] MEDS: SENNOSIDES-DOCUSATE SODIUM 1 EACH TAB PO SCH (11:38)
== END 2022-10-31 13:56 | disposition home or self-care (01) ==
LOC: OR 07:03 → 4FBP 10:58 → OR 10-31 13:56
PROVIDERS: ATTEND Obstetrics & Gynecology Obstetrics
DX: N92.0 Excessive and frequent menstruation with regular cycle (principal); N83.209 Unspecified ovarian cyst, unspecified side; J45.909 Unspecified asthma, uncomplicated; E11.9 Type 2 diabetes mellitus without complications; Z87.442 Personal history of urinary calculi; Z87.891 Personal history of nicotine dependence; Z79.51 Long term (current) use of inhaled steroids; Z79.899 Other long term (current) drug therapy; Z88.0 Allergy status to penicillin; Z88.1 Allergy status to other antibiotic agents; Z88.5 Allergy status to narcotic agent
CPT/HCPCS: 81025; 86900; 86901; 85025; 86850; 88307; 58260; J2250; J0330; J1100; J2710; J0690; J2405; J3010; J2704; J2001

== ENCOUNTER → 2023-01-05 | Outpatient (CLI) | payer BC ==
--- NOTE | 2023-01-08 10:11 | MM ---
Reason for Exam: Screening (asymptomatic). Last mammogram was performed 4 year(s) and 4 month(s) ago. Patient History: Menarche at age 7. First Full-Term at age 33. Late child-bearing (after 30). Hysterectomy at age 42. Currently using Progesterone, for 1 year. Maternal grandmother had breast cancer, age 70. Maternal cousin had breast cancer, age 30. Maternal aunt had breast cancer, age 60. Risk Values: Anat 5 year model risk: 1.2%. NCI Lifetime model risk: 14.3%. Prior Study Comparison: 11/30/2015 Bilateral Screening Mammogram, [facility]. 08/21/2018 Bilateral Screening Mammogram, [facility]. 08/28/2018 Right Diagnostic Mammogram, [facility]. Tissue Density: There are scattered fibroglandular densities. Findings: Analyzed By CAD. There is no suspicious group of microcalcifications or new suspicious mass in either breast. Overall Assessment: Negative, BI-RAD 1 Management: Screening Mammogram of both breasts in 1 year. . Patient should continue monthly self-breast exams. A clinical breast exam by your physician is recommended on an annual basis. This exam should not preclude additional follow-up of suspicious palpable abnormalities. Note on Anat scores and lifetime risk: 1. A Anat score greater than 3% is considered moderate risk. If this is the case, consider specialist referral to assess eligibility for a risk reducing agent. 2. If overall lifetime risk for the development of breast cancer is 20% or higher, the patient may qualify for future screening with alternating mammogram and breast MRI. Electronically signed and approved by: Man Tovar M.D. Radiologis
== END | disposition home or self-care (01) ==
LOC: RADMAMWWP 16:33
PROVIDERS: ATTEND Obstetrics & Gynecology Obstetrics
DX: Z12.31 Encounter for screening mammogram for malignant neoplasm of breast (principal); Z80.3 Family history of malignant neoplasm of breast
CPT/HCPCS: 77063; 77067

== ENCOUNTER 2023-10-02 19:51 | Emergency (ER) | payer BC ==
[2023-10-02 20:13] VITALS: RESP 18
--- NOTE | 2023-10-02 20:24 | ED ---
Female Urogenital HPI - General Chief complaint: Urogenital Stated complaint: UTI Time Seen by Provider: 10/02/23 20:15 Source: patient, RN notes reviewed Mode of arrival: ambulatory Limitations: no limitations - History of Present Illness Initial comments: Quicknote 43-year-old female presented to the ED with. Patient reports that she was initially 2 different antibiotics for treatment of UTI. States last week finished Keflex and is currently on day 1 of Macrobid. States over the past few days has had return of UTI symptoms including frequency, urgency, dysuria, hematuria. Today states that she started to develop left flank pain. Denies fever chills. - Related Data Home Medications Medication Instructions Recorded Confirmed Inhaler (Unknown Name) 1 puff INHALATION DIRECTED PRN 04/09/19 10/20/22 Multivitamins, Thera [Multivitamin 1 tab PO DAILY 04/09/19 10/20/22 (formulary)] Xanax (Unknown Dose) 1 tab PO HS 04/09/19 10/20/22 Escitalopram [Lexapro] 10 mg PO DAILY 10/20/22 10/20/22 Semaglutide [Ozempic] 2 mg SQ HOBSON 10/20/22 10/30/22 Amoxicillin 1 tab TID 10/30/22 10/30/22 Previous Rx's Medication Instructions Recorded Ibuprofen [Motrin] 600 mg PO Q8HR PRN #30 tab 06/14/20 Sulfamethox-Tmp 800-160Mg [Bactrim 1 each PO Q12HR 14 Days #28 tab 10/02/23 Ds] Allergies Allergy/AdvReac Type Severity Reaction Status Date / Time amoxicillin [From Augmentin] Allergy Nausea & Verified 10/02/23 20:09 Vomiting & Diarrhea clavulanic acid Allergy Nausea & Verified 10/02/23 20:09 [From Augmentin] Vomiting & Diarrhea hydrocodone bitartrate Allergy Itching Verified 10/02/23 20:09 [From Vicodin] Review of Systems ROS Statement: Those systems with pertinent positive or pertinent negative responses have been documented in the HPI. ROS Other: All systems not noted in ROS Statement are negative. Past Medical History Past Medical History: Asthma, Diabetes Mellitus, Skin Disorder Additional Past Medical History / Comment(s): IBS, arrythmia, loss of pigmentation in skin, gallstones, kidney stones, History of Any Multi-Drug Resistant Organisms: None Reported Past Surgical History: Section, Cholecystectomy, Uterine Ablation Additional Past Surgical History / Comment(s): COLP-WNL> 10yrs ago Past Anesthesia/Blood Transfusion Reactions: Motion Sickness Additional Past Anesthesia/Blood Transfusion Reaction / Comment(s): no blood tx hx Past Psychological History: Anxiety Smoking Status: Former smoker - Past Family History Mother Family Medical History: Cancer General Exam - General Exam Comments Initial Comments: Visual Physical Exam Vital signs reviewed General: Well-appearing, nontoxic, no acute distress. Head: Normocephalic, atraumatic Eyes: PERRLA, EOMI ENT: Airway patent Chest: Nonlabored breathing Skin: No visual rash, normal skin tone Neuro: Alert and oriented 3 Musculoskeletal: No gross abnormalities Limitations: no limitations General appearance: alert, in no apparent distress Eye exam: Present: normal appearance Neck exam: Present: normal inspection Respiratory exam: Present: normal lung sounds bilaterally Cardiovascular Exam: Present: regular rate GI/Abdominal exam: Present: soft, normal bowel sounds, other (CVA Tenderness to percussion bilaterally.). Absent: distended, tenderness, guarding, rebound, rigid Neurological exam: Present: alert, oriented X3 Skin exam: Present: warm, dry Course Vital Signs 10/02/23 20:09 Temperature 98.4 F Pulse Rate 86 Respiratory 18 Rate Blood Pressure 136/91 O2 Sat by Pulse 97 Oximetry Medical Decision Making - Medical Decision Making Quicknote portion performed. Signed Ceferino Fernandes PA-C was pt. sent in by a medical professional or institution ([facility], [facility], urgent care, hospital, or [facility]...) When possible be specific @ -No Did you speak to anyone other than the patient for history (EMS, parent, family, police, friend...)? What history was obtained from this source @ -No Did you review nursing and triage notes (agree or disagree)? Why? @ -I reviewed and agree with nursing and triage notes Were old charts reviewed (outside hosp., previous admission, EMS record, old EKG, old radiological studies, urgent care reports/EKG's, [facility] records)? Report findings @ -No old charts were reviewed Differential Diagnosis (chest pain, altered mental status, abdominal pain women, abdominal pain men, vaginal bleeding, weakness, fever, dyspnea, syncope, headache, dizziness, GI bleed, back pain, seizure, CVA, palpatations, mental health, musculoskeletal)? @ -Differential Abdominal Pain Women: Appendicitis, Cholecystitis, diverticulosis, ischemic bowel, pancreatitis, hepatitis, UTI, gastroenteritis, AAA, incarcerated hernia, bowel obstruction, constipation, inflammatory bowel, hepatitis, peptic ulcer disease, splenic infarction, perforated viscus, vulvitis, ovarian torsion, PID, kidney stone, placenta abruption, this is not meant to be an all-inclusive list EKG interpreted by me (3pts min.). @ -None X-rays interpreted by me (1pt min.). @ -None done CT interpreted by me (1pt min.). @ -CT abdomen pelvis interpreted me which revealed no evidence of acute finding. U/S interpreted by me (1pt. min.). @ -None done What testing was considered but not performed or refused? (CT, X-rays, U/S, labs)? Why? @ -None What meds were considered but not given or refused? Why? @ -None Did you discuss the management of the patient with other professionals (professionals i.e. , PA, [facility], lab, RT, psych nurse, social work therapist, state farm agent team member, teacher, medical scientific officer, division operations manager)? Give summary @ -No Was smoking cessation discussed for >3mins.? @ -No Was critical care preformed (if so, how long)? @ -No Were there social determinants of health that impacted care today? How? (Homelessness, low income, unemployed, alcoholism, drug addiction, transportatio n, low edu. Level, literacy, decrease access to med. care, care home, rehab)? @ -No Was there de-escalation of care discussed even if they declined (Discuss DNR or withdrawal of care, Hospice)? DNR status @ -No What co-morbidities impacted this encounter? (DM, HTN, Smoking, COPD, CAD, Cancer, CVA, ARF, Chemo, Hep., AIDS, mental health diagnosis, sleep apnea, morbid obesity)? @ -None Was patient admitted / discharged? Hospital course, mention meds given and route, prescriptions, significant lab abnormalities, going to OR and other pertinent info. @ -Discharge 43-year-old female presented to the ED with complaints of UTI symptoms for the past 2 to 3 weeks despite outpatient antibiotics. Laboratory studies reviewed. Labs show CBC of 13.2. Chemistry panel largely unremarkable. UA does show evidence of infection with moderate leukocyte esterase, 30 white blood cells, rare bacteria. Urine culture obtained. Patient given 2 g of Rocephin here in the ED and discharged home with prescription for Bactrim with referral to see urology. Advise close follow-up. Discharged home in stable condition. Discussed return precautions with patient who verbalized agreement. Undiagnosed new problem with uncertain prognosis? @ -No Drug Therapy requiring intensive monitoring for toxicity (Heparin, Nitro, Insulin, Cardizem)? @ -No Were any procedures done? @ -No Diagnosis/symptom? @ -Pyelonephritis Acute, or Chronic, or Acute on Chronic? @ -Acute Uncomplicated (without systemic symptoms) or Complicated (systemic symptoms)? @ -Uncomplicated Side effects of treatment? @ -No Exacerbation, Progression, or Severe Exacerbation? @ -No Poses a threat to life or bodily function? How? (Chest pain, [place], [place], pneumonia, PE, COPD, DKA, ARF, appy, cholecystitis, CVA, Diverticulitis, Homicidal, [place] icidal, threat to staff... and all critical care pts) @ -No - Lab Data Result diagrams: 10/02/23 21:50 10/02/23 21:50 Lab Results 10/02/23 10/02/23 10/02/23 Range/Units 20:31 21:50 21:50 WBC 13.2 H (3.8-10.6) k/uL RBC 4.54 (3.80-5.40) m/uL Hgb 14.1 (11.4-16.0) gm/dL Hct 40.2 (34.0-46.0) % MCV 88.7 (80.0-100.0) fL MCH 31.1 (25.0-35.0) pg MCHC 35.1 (31.0-37.0) g/dL RDW 13.1 (11.5-15.5) % Plt Count 371 (150-450) k/uL MPV 8.6 Neutrophils % 67 % Lymphocytes % 24 % Monocytes % 7 % Eosinophils % 1 % Basophils % 0 % Neutrophils # 8.8 H (1.3-7.7) k/uL Lymphocytes # 3.2 (1.0-4.8) k/uL Monocytes # 0.9 (0-1.0) k/uL Eosinophils # 0.1 (0-0.7) k/uL Basophils # 0.0 (0-0.2) k/uL Sodium 138 (137-145) mmol/L Potassium 4.1 (3.5-5.1) mmol/L Chloride 104 (98-107) mmol/L Carbon Dioxide 31 H (22-30) mmol/L Anion Gap 3 mmol/L BUN 18 H (7-17) mg/dL Creatinine 0.61 (0.52-1.04) mg/dL Est GFR (CKD-EPI)AfAm >90 (>60 ml/min/1.73 sqM) Est GFR (CKD-EPI)NonAf >90 (>60 ml/min/1.73 sqM) Glucose 92 (74-99) mg/dL Calcium 9.4 (8.4-10.2) mg/dL Total Bilirubin 0.6 (0.2-1.3) mg/dL AST 18 (14-36) U/L ALT 15 (4-34) U/L Alkaline Phosphatase 86 (38-126) U/L Total Protein 6.9 (6.3-8.2) g/dL Albumin 4.0 (3.5-5.0) g/dL Urine Color Yellow Urine Appearance Clear (Clear) Urine pH 6.5 (5.0-8.0) Ur Specific [place] 1.020 (1.001-1.035) Urine Protein Negative (Negative) Urine Glucose (UA) Negative (Negative) Urine Ketones Negative (Negative) Urine Blood Negative (Negative) Urine Nitrite Negative (Negative) Urine Bilirubin Negative (Negative) Urine Urobilinogen <2.0 (<2.0) mg/dL Ur Leukocyte Esterase Moderate H (Negative) Urine RBC 3 (0-5) /hpf Urine WBC 38 H (0-5) /hpf Ur Squamous Epith Cells <1 (0-4) /hpf Urine Bacteria Rare H (None) /hpf Urine Mucus Occasional H (None) /hpf Disposition Clinical Impression: Pyelonephritis Disposition: HOME SELF-CARE Condition: Good Instructions (If sedation given, give patient instructions): Kidney Infection (ED) Additional Instructions: Please return to the Emergency Department if symptoms worsen or any other concerns. Please follow-up with your PCP and urology. Prescriptions: Sulfamethox-Tmp 800-160Mg [Bactrim Ds] 1 each PO Q12HR 14 Days #28 tab Is patient prescribed a controlled substance at d/c from ED?: No Referrals: Jadon Valdivia [Primary Care Provider] - 1-2 days Donovan Askew MD [STAFF PHYSICIAN] - 1-2 days Time of Disposition: 23:10
[2023-10-02 20:54] LABS: Appearance,Urine Clear (Clear); Bacteria,Urine Rare /hpf; Bilirubin,Urine Negative (Negative); Blood,Urine Negative (Negative); Color,Urine Yellow; Glucose,Urine (UA) Negative (Negative); Ketones,Urine Negative (Negative); Leukocyte Esterase,Urine Moderate (Negative); Mucus,Urine Occasional /hpf; Nitrite,Urine Negative (Negative); PH, Urine 6.5 (5.0-8.0); Protein,Urine Negative (Negative); RBC,Urine 3 /hpf (0-5); Squamous Epithelial Cell,Urine <1 /hpf (0-4); Urobilinogen,Urine <2.0 mg/dL (<2.0); WBC,Urine 38 /hpf (0-5)
--- NOTE | 2023-10-02 21:21 | CT ---
EXAMINATION TYPE: CT abdomen pelvis wo con CT DLP: 1068.4 mGycm, Automated exposure control for dose reduction was used. DATE OF EXAM: 10/02/2023 9:01 PM COMPARISON: CT abdomen pelvis most recent from 10/11/2021. CLINICAL INDICATION:Female, 43 years old with history of left flank pain. TECHNIQUE: Axial CT of the abdomen and pelvis. Sagittal and coronal reformats were created on a [employer] workstation. Contrast used: (none if empty) Oral contrast used: without Oral Contrast (none if empty) FINDINGS: LOWER CHEST: Unremarkable ABDOMEN LIVER: Unremarkable GALLBLADDER AND BILE DUCTS: The gallbladder is absent with postsurgical clips identified. No evidence of biliary duct dilation PANCREAS: Unremarkable. SPLEEN: Unremarkable. ADRENAL GLANDS: Unremarkable. KIDNEYS AND URETERS: No evidence of hydronephrosis. Punctate left renal calculi identified. The urete rs are unremarkable. PELVIS BLADDER: Unremarkable REPRODUCTIVE: Unremarkable. ABDOMEN & PELVIS STOMACH AND BOWEL: Stomach and duodenum are unremarkable. No evidence of bowel obstruction. PERITONEUM/RETROPERITONEUM: No evidence of pneumoperitoneum or free fluid. VASCULATURE: No evidence of aortic aneurysm. MUSCULOSKELETAL: No acute osseous abnormalities LYMPH NODES: No gross evidence for lymphadenopathy. SOFT TISSUE/ABDOMINAL WALL: Unremarkable IMPRESSION: 1. No acute process or obstructive uropathy. 2. Punctate nonobstructive left renal calculi.
[2023-10-02 22:15] LABS: Carbon Dioxide 31 mmol/L (22-30); Chloride 104 mmol/L (98-107); Glucose 92 mg/dL (74-99); Potassium 4.1 mmol/L (3.5-5.1); Sodium 138 mmol/L (137-145)
[2023-10-02 22:16] LABS: ALT 15 U/L (4-34); AST 18 U/L (14-36); African American GFR (CKD) >90 (>60 ml/min/1.73 sqM); Alkaline Phosphatase 86 U/L (38-126); Anion Gap 3 mmol/L; Blood Urea Nitrogen 18 mg/dL (7-17); Calcium 9.4 mg/dL (8.4-10.2); Non-African American GFR(CKD) >90 (>60 ml/min/1.73 sqM); Total Bilirubin 0.6 mg/dL (0.2-1.3); Total Protein 6.9 g/dL (6.3-8.2)
[2023-10-02 22:22] LABS: Basophils % (A) 0 %; Eosinophils # (A) 0.1 k/uL (0-0.7); Eosinophils % (A) 1 %; HCT 40.2 % (34.0-46.0); HGB 14.1 gm/dL (11.4-16.0); Lymphocytes # (A) 3.2 k/uL (1.0-4.8); Lymphocytes % (A) 24 %; MCH 31.1 pg (25.0-35.0); MCHC 35.1 g/dL (31.0-37.0); MCV 88.7 fL (80.0-100.0); Mean Platelet Volume 8.6; Monocytes # (A) 0.9 k/uL (0-1.0); Monocytes % (A) 7 %; Neutrophils # (A) 8.8 k/uL (1.3-7.7); Neutrophils % (A) 67 %; Platelet Count 371 k/uL (150-450); RBC 4.54 m/uL (3.80-5.40); RDW 13.1 % (11.5-15.5); WBC 13.2 k/uL (3.8-10.6)
[2023-10-02] MEDS: SODIUM CHLORIDE 0.9% 2,000 ML IV STA (23:47)
[2023-10-03] MEDS: ACETAMINOPHEN TAB 500 MG TAB PO STA (00:27)
[2023-10-03 02:01] VITALS: BP 120/81; PULSE 70; TEMP 98.3
== END 2023-10-03 02:19 | disposition home or self-care (01) ==
LOC: EC 19:51
DX: N12 Tubulo-interstitial nephritis, not specified as acute or chronic (principal); Z87.891 Personal history of nicotine dependence; Z88.0 Allergy status to penicillin; Z88.1 Allergy status to other antibiotic agents; Z88.5 Allergy status to narcotic agent
CPT/HCPCS: 99284; 96365; 96361; 36415; 80053; 85025; 81001; 87086; 74176; J0696

== ENCOUNTER → 2024-04-11 | Outpatient (CLI) | payer BC ==
--- NOTE | 2024-04-11 18:31 | CT ---
EXAMINATION TYPE: CT abdomen pelvis wo con DATE OF EXAM: 04/11/2024 4:27 PM COMPARISON: 10/02/2023 CLINICAL INDICATION: Female, 44 years old with history of N20.0 CALCULUS OF KIDNEY; left flank pain TECHNIQUE: Axial CT abdomen pelvis wo con;Sagittal and coronal reformats were created on a separate workstation. Contrast used: mL of , (none if empty) Oral contrast used: without Oral Contrast (none if empty) CT DLP: 1095 mGycm, Automated exposure control for dose reduction was used. FINDINGS: LOWER CHEST: Unremarkable ABDOMEN LIVER: Unremarkable GALLBLADDER AND BILE DUCTS: Unremarkable. PANCREAS: Unremarkable. SPLEEN: Unremarkable. ADRENAL GLANDS: Unremarkable. KIDNEYS AND URETERS: No evidence of hydronephrosis or renal calculus. The ureters are unremarkable. Mild dilation of the left renal collecting system compared to the right. PELVIS BLADDER: No evidence for wall thickening or mass given limitations of exam. REPRODUCTIVE: Unremarkable. ABDOMEN & PELVIS STOMACH AND BOWEL: No evidence of bowel obstruction. The appendix is normal. PERITONEUM/RETROPERITONEUM: No evidence of pneumoperitoneum or free fluid. VASCULATURE: No evidence of aortic aneurysm. MUSCULOSKELETAL: No acute osseous abnormalities LYMPH NODES: No gross evidence for lymphadenopathy. SOFT TISSUE/ABDOMINAL WALL: Fat-containing umbilical hernia. IMPRESSION: No acute process. No evidence for obstructive uropathy. There is mild dilation of the left collecting system correlate for recently passed stone. No renal calculi visualized. [facility], , 04/11/2024 6:29 PM
== END | disposition home or self-care (01) ==
LOC: RADCTMAIN 15:41
PROVIDERS: ATTEND Urology
DX: N20.0 Calculus of kidney (principal); K42.9 Umbilical hernia without obstruction or gangrene
CPT/HCPCS: 74176

== ENCOUNTER → 2024-04-11 | Outpatient (CLI) | payer BC ==
[2024-04-11 16:50] LABS: African American GFR (CKD) >90 (>60 ml/min/1.73 sqM); Blood Urea Nitrogen 18 mg/dL (7-17); Non-African American GFR(CKD) >90 (>60 ml/min/1.73 sqM)
--- NOTE | 2024-04-11 17:45 | CT ---
EXAMINATION TYPE: CT chest w con DATE OF EXAM: 04/11/2024 5:29 PM COMPARISON: neck 02/13/2024 CLINICAL INDICATION: Female, 44 years old with history of R91.8 NONSPECIFIC ABNORMAL FINDING LUNG FIE LD; [facility], abnormal finding in neck ct TECHNIQUE: Multiple axial images were obtained through the chest. Sagittal and coronal reformats were created for review. MIP was performed on a separate workstation. Contrast used:100ml mL of Isovue 300 with IV Contrast (None if empty) Oral contrast used: (None if empty) CT DLP: 558.7 mGycm, Automated exposure control for dose reduction was used. FINDINGS: LUNGS/ PLEURA: No focal consolidation, pneumothorax or pleural effusion. AIRWAY: Patent and unremarkable. HEART: Size within normal limits. MEDIASTINUM: No gross evidence of adenopathy. VASCULATURE: No aortic aneurysm. MUSCULOSKELETAL: No acute osseous abnormalities SOFT TISSUES/LYMPH NODES: Unremarkable. LOWER NECK: No significant findings. UPPER ABDOMEN: Cholecystectomy clips. IMPRESSION: 1. No evidence for mass or suspicious nodule. 2. No acute intrathoracic process. [facility], , 04/11/2024 5:43 PM
== END | disposition home or self-care (01) ==
LOC: RADCTMAIN 15:35
PROVIDERS: ATTEND Otolaryngology
DX: R91.8 Other nonspecific abnormal finding of lung field (principal); Z90.49 Acquired absence of other specified parts of digestive tract
CPT/HCPCS: 82565; 84520; 71260; 36415; Q9967

== ENCOUNTER → 2024-09-26 | Outpatient (CLI) | payer BC ==
[2024-09-26 16:55] LABS: African American GFR (CKD) >90 (>60 ml/min/1.73 sqM); Blood Urea Nitrogen 19 mg/dL (7-17); Non-African American GFR(CKD) >90 (>60 ml/min/1.73 sqM)
--- NOTE | 2024-10-01 23:42 | CT ---
EXAMINATION TYPE: CT soft tissue neck w con DATE OF EXAM: 09/26/2024 5:22 PM COMPARISON: 06/03/2024 CLINICAL INDICATION: Female, 44 years old with history of R22.1 LOCALIZED SWELLING, MASS AND LUMP, NE CK, lump on right side of neck TECHNIQUE: Axial images at 3 mm thick sections. Reconstructed images in the coronal plane and sagitt al plane are reviewed. Contrast used:100ml mL of Isovue 300 with IV Contrast, (none if empty) Oral contrast used: (none if empty) CT DLP: 614.7 mGycm, Automated exposure control for dose reduction was used. FINDINGS: Limited CT sections are obtained the lung apices. The lung apices appear clear. CT neck: The torus tubarius and fossa of Rosenmuller are normal. [employer] spaces are normal. Para nasal sinuses and mastoid air cells are clear. Parotid glands appear normal and symmetrical. Submandibular glands, are normal. Parapharyngeal spac es are normal. There is a 3.0 x 2.7 cm hypodense area with isodense rim appears to be a large abnormal low in the ri ght posterior submandibular region. Punctate submental lymph nodes are present. Couple of small cell mandibular lymph nodes are present. Submandibular glands appear normal. Parotid glands appear normal. Parapharyngeal spaces are normal. The hypopharynx appears within normal limits. Vocal cord level appear symmetrical. Thyroid as visualized is normal. Osseous structures are normal. IMPRESSION: 1. Large abnormal mass likely a lymph node at the marked palpable region right submandibular region. This has enlarged with the development of a hypodense center from comparison. [facility], , 10/01/2024 11:40 PM
== END | disposition home or self-care (01) ==
LOC: RADCTMAIN 16:13
PROVIDERS: ATTEND Otolaryngology
DX: R22.1 Localized swelling, mass and lump, neck (principal)
CPT/HCPCS: 82565; 84520; 70491; 36415; Q9967